=== PATIENT | male | born 2000 | race Caucasian/White ===

== ENCOUNTER 2018-09-13 20:42 | Emergency (ER) | payer SELFPAY ==
--- NOTE | 2018-09-13 21:43 | RAD ---
XR Knee Lt 4 View STANDARD: 09/13/2018 8:54 PM CLINICAL INDICATION: Injury, pain COMPARISON: None. FINDINGS: Fracture:No fracture. Arthropathy:None of significance. Incidental findings:None of significance. IMPRESSION: 1. No acute osseous abnormality.
== END 2018-09-13 21:53 | disposition home or self-care (01) ==
LOC: NAV ERS 20:42
DX: S80.02XA Contusion of left knee, initial encounter (principal); W23.0XXA Caught, crushed, jammed, or pinched between moving objects, initial encounter